=== PATIENT | female | born 1955 | race Caucasian/White ===

== ENCOUNTER 2022-01-13 15:17 | Emergency (ER) | payer MEDICARE, SELFPAY ==
--- NOTE | ~2022-01-13 | XR_ITS ---
EXAMINATION: XR cervical spine 4-5V DATE: 01/13/2022 16:32 INDICATION: Neck pain. Fall. TECHNIQUE: 5 views of cervical spine were obtained. COMPARISON: None. FINDINGS: There is 6 degrees dextrocurvature of cervicothoracic spine. Vertebral body heights are nor mal. There is mildly decreased disc height at C6-C7. There is multilevel mild facet joint osteoarthri tis. There is mild central canal stenosis at C6-C7. No prevertebral soft tissue swelling. IMPRESSION: 1. Mild cervical spondylosis. Reviewed, dictated and finalized at location B.
--- NOTE | ~2022-01-13 | XR_ITS ---
EXAMINATION: XR ankle LT min 3V DATE: 01/13/2022 16:04 INDICATION: Left ankle injury. TECHNIQUE: 4 views of left ankle were obtained. COMPARISON: None. FINDINGS: Bone alignment is normal. There is plate and screw fixation of distal fibula. There is scre w and pin fixation of medial malleolus. There is mild osteoarthritis of the ankle joint and some of t he midfoot joints. There are enthesophytes at the posterior and plantar aspects of calcaneal tuberosi ty. IMPRESSION: 1. Polyarticular osteoarthritis. Reviewed, dictated and finalized at location B.
--- NOTE | ~2022-01-13 | XR_ITS ---
EXAMINATION: XR foot LT min 3V DATE: 01/13/2022 16:04 INDICATION: Left foot injury. TECHNIQUE: 4 views of left foot were obtained. COMPARISON: None. FINDINGS: There is a fracture of metaphysis of fifth proximal phalanx. The distal fracture fragment d emonstrates near-anatomic alignment. There is an old fracture deformity of fifth metatarsal. There is plate and screw fixation of distal fibula. There is pin and screw fixation of medial malleolus. Ther e is mild osteoarthritis of first metatarsophalangeal joint and some of the interphalangeal joints an d midfoot joints. There are enthesophytes at the posterior and plantar aspects of calcaneal tuberosit y. IMPRESSION: 1. Nondisplaced fracture of fifth proximal phalanx. 2. Mild polyarticular osteoarthritis. Reviewed, dictated and finalized at location B.
--- NOTE | 2022-01-13 15:19 | ED.LOWEXIN ---
HPI - Extremity Injury (Lower) General Chief Complaint: Extremity Injury, Lower Stated Complaint: Left Foot/Toe/Knee Injury Time Seen by Provider: 01/13/22 15:20 Source: patient and RN notes reviewed History of Present Illness HPI Narrative: Patient is a 66-year-old female who presents the urgent care with her daughter with complaints of a fall resulting in left knee, left toe and left foot pain. Patient states it happened yesterday approximately [address] [facility] convenient care turned her down due to coming in too late . Patient has been icing and elevating. Denies hitting her head or any loss of consciousness. States that she stepped in a hole in the grass and fell to her knees. No other acute complaints. No acute distress noted. Patient aware of the plan of care. Some parts of this dictation were generated by voice recognition software and may contain typographical and/or grammatical inaccuracies. Related Data Home Medications Medication Instructions Recorded Confirmed alpelisib 250mg/day (200 mg x 1 1 tablet PO DIRECTED 01/13/22 01/13/22 and 50 mg x 1) tablet (Piqray) amoxicillin 500 mg capsule 1 cap PO DIRECTED 01/13/22 01/13/22 atorvastatin 40 mg tablet 40 mg PO DAILY 01/13/22 01/13/22 carvedilol 12.5 mg tablet 12.5 mg PO DAILY 01/13/22 01/13/22 clopidogrel 75 mg tablet 75 mg PO DAILY 01/13/22 01/13/22 duloxetine 60 mg capsule,delayed 60 mg PO DAILY 01/13/22 01/13/22 release empagliflozin 10 mg tablet 10 mg PO DAILY 01/13/22 01/13/22 (Jardiance) exemestane 25 mg tablet 25 mg PO DAILY 01/13/22 01/13/22 furosemide 20 mg tablet 20 mg PO DAILY 01/13/22 01/13/22 hydrocodone 5 mg-acetaminophen 325 1 tablet PO DIRECTED 01/13/22 01/13/22 mg tablet omeprazole 40 mg capsule,delayed 40 mg PO DAILY 01/13/22 01/13/22 release potassium chloride 20 mEq 20 meq PO DAILY 01/13/22 01/13/22 tablet,extended release spironolactone 25 mg tablet 25 mg PO DAILY 01/13/22 01/13/22 Allergies Allergy/AdvReac Type Severity Reaction Status Date / Time CODEINE (Generic Allergy) Allergy Intermediate itching Uncoded 01/13/22 15:32 VICODIN Allergy Intermediate itching Uncoded 01/13/22 15:32 Review of Systems Review of Systems: CONSTITUTIONAL: Denies fever, chills, or sweats. EYES: Denies visual changes, redness, or discharge. ENT: Denies rhinorrhea, congestion, sore throat, or otalgia. CARDIOVASCULAR: Denies chest pain, palpitations, or edema. RESPIRATORY: Denies cough or dyspnea. GASTROINTESTINAL: Denies abdominal pain, nausea, vomiting, or diarrhea. GENITOURINARY: Denies dysuria or hematuria. SKIN: Denies rash or itching. MUSCULOSKELETAL: Reports of left foot/ankle, left toe and left knee pain due to fall NEUROLOGIC: Denies headache, numbness, or weakness. All other systems reviewed are negative, except as documented in HPI. PMFSH Comments At the time of my signature, I reviewed and agree with the nursing past medical, surgical, social, and family history. There is no relevant family history pertinent to the patient complaint. Exam Narrative: GENERAL: This is a well-nourished, well-developed patient, in no apparent distress. HEAD: normocephalic, atraumatic. EYES: PERRL. Sclera clear/white. Vision is grossly intact. EARS: External ears normal NOSE: External nose normal with no obvious nasal discharge, nares without redness, no rhinorrhea. THROAT: Mucous membranes moist NECK: Neck supple; tenderness to C6/C7 region with mild diffuse cervical tenderness. Range of motion tolerated CARDIOVASCULAR: Regular rate and rhythm RESPIRATORY: Clear to auscultation. Breath sounds equal bilaterally. No wheezes, rales, or rhonchi. SKIN: warm, intact with no suspicious lesions or rash, good texture and turgor. NEURO: awake, alert, and oriented to person, place and time. There were no obvious focal neurologic abnormalities. EXTREMITIES: Moderate edema without erythema to lateral left malleolus with mild to moderate tenderness. Rang
[2022-01-13 15:28] VITALS: BP 122/73; PULSE 66; RESP 16; TEMP 37.2; O2SAT 99
[2022-01-13 15:34] VITALS: BP 122/73; PULSE 66; RESP 16; TEMP 37.2; O2SAT 99
== END 2022-01-13 16:58 | disposition home or self-care (01) ==
PROVIDERS: Emergency Provider Nurse Practitioner Family; PCP Internal Medicine
DX: S93.402A Sprain of unspecified ligament of left ankle, initial encounter (principal); S96.912A Strain of unspecified muscle and tendon at ankle and foot level, left foot, initial encounter; S92.515A Nondisplaced fracture of proximal phalanx of left lesser toe(s), initial encounter for closed fracture; S16.1XXA Strain of muscle, fascia and tendon at neck level, initial encounter; W19.XXXA Unspecified fall, initial encounter
CPT/HCPCS: 72050; 73610; 73630; 99204; G0463